=== PATIENT | female | born 2000 | race Caucasian/White ===

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

== ENCOUNTER 2022-04-09 02:52 | Emergency (ER) | payer BC ==
[2022-04-09] MEDS ORDERED: predniSONE 20 MG TAB ONE (05:45)
[2022-04-09] MEDS ORDERED: diphenhydrAMINE 50 MG CAP ONE (05:45)
[2022-04-09] MEDS ORDERED: Famotidine 20 MG TAB ONE (05:45)
== END 2022-04-09 06:11 | disposition home or self-care (01) ==
LOC: ERS 02:52
DX: L50.9 Urticaria, unspecified (principal)
CPT/HCPCS: 99282; J7512